=== PATIENT | female | born 1955 | race African-American/Black ===

== ENCOUNTER 2022-01-05 11:02 | Emergency (ER) | payer MEDICARE, OTHER ==
[~2022-01-05] VITALS: Ht 160 cm; Wt 104.5 kg
[2022-01-05] MEDS ORDERED: AMLO-257 PO (11:04)
[2022-01-05] MEDS ORDERED: KETOROLAC TROMETHAMINE 30 MG/ML VIAL IM ONE (12:15)
[2022-01-05 12:45] LABS: APPEARANCE,URINE CLEAR (CLEAR); BILIRUBIN,URINE NEGATIVE (NEGATIVE); GLUCOSE, URINE (UA) NEGATIVE (NEGATIVE); KETONES,URINE NEGATIVE (NEGATIVE); LEUKOCYTE ESTERASE ,URINE NEGATIVE (NEGATIVE); NITRATE,URINE NEGATIVE (NEGATIVE); OCCULT BLOOD,URINE NEGATIVE (NEGATIVE); PH,URINE 6.5 (5.0-8.0); PROTEIN,URINE NEGATIVE (NEGATIVE); SPECIFIC GRAVITIY, URINE 1.018 (1.003-1.030); UROBILINOGEN,URINE <=1.0 mg/dL (<=1.0)
[2022-01-05] MEDS ORDERED: METOCLOPRAMIDE HCL 5 MG/ML 2 ML VIAL IVP PRN (13:15)
[2022-01-05] MEDS ORDERED: LOPERAMIDE HCL 2 MG CAPSULE PO PRN (13:15)
[2022-01-05] MEDS ORDERED: DICYCLOMINE HCL 10 MG CAPSULE PO PRN (13:15)
[2022-01-05] MEDS ORDERED: CYCL-448 PO (13:22)
[2022-01-05 13:43] VITALS: BP 139/84
[2022-01-05] MEDS ORDERED: TEMAZEPAM 15 MG CAPSULE PO SCH (21:00)
== END 2022-01-05 13:55 | disposition home or self-care (01) ==
LOC: EMS 11:05
DX: M54.9 Dorsalgia, unspecified (principal); I10 Essential (primary) hypertension; Z98.890 Other specified postprocedural states
CPT/HCPCS: 99284; 81003; 72100; 96372; J1885

== ENCOUNTER 2022-03-16 05:31 | Emergency (ER) | payer MEDICARE, OTHER ==
[~2022-03-16] VITALS: Ht 157.5 cm; Wt 95.5 kg
[~2022-03-16 05:31] MED LIST: AMLO-257 PO; CYCL-448 PO
[2022-03-16 06:11] LABS: COVID AG,FIA SOURCE NASAL SWAB
[2022-03-16 06:30] LABS: INFLUENZA TYPE A NEGATIVE FOR TYPE A (NEGATIVE); INFLUENZA TYPE B NEGATIVE FOR TYPE B (NEGATIVE)
[2022-03-16 10:52] VITALS: BP 159/81
[2022-03-16] MEDS ORDERED: OXYM15SP57 NASAL (12:30)
[2022-03-16] MEDS ORDERED: BENZ-70 PO (12:32)
== END 2022-03-16 12:50 | disposition home or self-care (01) ==
LOC: EMS 05:32
DX: J40 Bronchitis, not specified as acute or chronic (principal); I10 Essential (primary) hypertension; Z98.890 Other specified postprocedural states; Z20.822 Contact with and (suspected) exposure to COVID-19
CPT/HCPCS: 87804; 99283